=== PATIENT | female | born 1965 | race Caucasian/White ===

== ENCOUNTER → 2016-11-01 | Outpatient (CLI) | payer OTHER ==
[~2016-11-01] MED LIST: ATROPINE SULF 1MG/10ML SYRINGE (J0461) As Ordered ONE; BOTULINUM INJ 100 UNITS (J0585) XX ONE; CETI10CH PO; CYCL10TA3 PO; CYMB60CA3 PO; DEPA250T32 PO; DILA2TAB PO; GABA300C2 PO; GABAPOW41 PO; IMIT100T PO; LANS30CA PO; LEVO75TA3 PO; LEVO88TA3 PO; LIDO5OI EXT; LYRI100C10 PO; LYRI150C PO; LYRI75CA PO; MULTCAP PO; NARA2.5T PO; NORT50CA PO; NUCY50TA PO; PANT20TA PO; PROP1TAB29 PO; RELP20TA PO; SIMV10TA2 PO; TRAZ50TA4 PO; VITA200015 PO; VITA500T3 PO; VITAD1000T PO; [UNRECOGNIZED DRUG - CODE] OU; [UNRECOGNIZED DRUG - CODE] PO; [UNRECOGNIZED DRUG - OTHER] OU
--- NOTE | 2016-11-08 00:59 | ECWPNPC ---
PATIENT NAME: TACOS GONSALEZ : 1965 GENDER: FEMALE VISIT DATE: 11/01/2016 DISCHARGE DATE: 11/01/16 1314 VISIT LOCKED DATE TIME: PHYSICIAN: KENDELL GARCIA RESOURCE: KENDELL GARCIA REASON FOR APPOINTMENT 1. BOTOX HISTORY OF PRESENT ILLNESS HISTORY OF PRESENT ILLNESS: PAIN THE PATIENT DESCRIBES THE PAIN... FALL RISK SCREENING: SCREENING :NO FALLS IN THE PAST YEAR CURRENT MEDICATIONS TAKING CETIRIZINE HCL 10 MG TABLET 1 TABLET NEEDED ORALLY ONCE A DAY, NOTES: 11-01-16599 TAKING CHOLECALCIFEROL 91295 UNIT TABLET ORALLY WEEKLY, NOTES: 10-30-16 TAKING CYANOCOBALAMIN 500 MCG TABLET 1 TABLET ORALLY ONCE A DAY, NOTES: 10-31-162129 TAKING CYCLOBENZAPRINE HCL 10 MG TABLET 1 TABLET ORALLY AT BEDTIME AND NEEDED, NOTES: 11-01-16599 TAKING SYNTHROID 88 MCG TABLET 1 TABLET ORALLY ONCE A DAY, NOTES: 10-31-162129 TAKING LIDOCAINE HCL 5 % OINTMENT EXTERNALLY PRN, NOTES: 3-4 DAYS AGO TAKING MULTIVITAMIN 1 TAB ORALLY DAILY, NOTES: 11-01-16599 TAKING NARATRIPTAN HCL 2.5 MG TABLET FOR MIGRANE ORALLY PRN, NOTES: 10-31-162099 TAKING PANTOPRAZOLE SODIUM 30 MG ORALLY ONCE A DAY, NOTES: 11-01-16599 TAKING VISINE 0.05 % SOLUTION 1 DROP INTO AFFECTED EYE NEEDED OPHTHALMIC DIRECTED, NOTES: 10-31-162099 TAKING DULOXETINE HCL 60 MG CAPSULE DELAYED RELEASE PARTICLES 1 CAPSULE ORALLY BID, NOTES: 11-01-16599 TAKING NORTRIPTYLINE HCL 50 MG CAPSULE 1 CAPSULE AT BEDTIME ORALLY ONCE A DAY AT BEDTIME, NOTES: 10-31-162099 TAKING NUCYNTA 50 MG TABLET 1 TABLET ORALLY 1 Q4-6H MDD4, NOTES: 11-01-16599 DISCONTINUED PREDNISONE 10 MG TABLET 1 TABLET ORALLY ONCE A DAY DISCONTINUED METHOTREXATE (ANTI-RHEUMATIC) 2.5 MG TABLET ORALLY DISCONTINUED NORTRIPTYLINE HCL 50 MG CAPSULE 1 CAPSULE AT BEDTIME ORALLY ONCE A DAY MEDICATION LIST REVIEWED AND RECONCILED WITH THE PATIENT ALLERGIES NIACIN: SWELLING, REDNESS TEGERDERM PATCHES: BLISTERS SOCIAL HISTORY GENERAL: TOBACCO USE ARE YOU A:NONSMOKER LEARNING BARRIERS / SPECIAL NEEDS ORIENTED TO PLAN OF CARE: PATIENT, PAIN MANAGEMENT PATIENT, ORIENTED TO PLAN OF CARE: PATIENT, PAIN MANAGEMENT PATIENT. NEW PATIENT PAIN DIARY TODAY'S VISITNOTES FROM 0-10, WHAT LEVEL IS YOUR PAIN TODAY?0 PAIN CLINIC PFS, CLERGY, PUBLIC HEALTH REFERRALS PFS REFERRAL NEEDED?NO CLERGY REFERRAL NEEDED?NO PUBLIC HEALTH REFERRAL NEEDED?NO WAS THE PROVIDER NOTIFIED OF ANY PERTINENT INFO?NO PFS REFERRAL NEEDED?NO CLERGY REFERRAL NEEDED?NO PUBLIC HEALTH REFERRAL NEEDED?NO WAS THE PROVIDER NOTIFIED OF ANY PERTINENT INFO?NO REVIEW OF SYSTEMS CONSTITUTIONAL: ANY CHANGE IN YOUR MEDICAL CONDITION? NO . CHILLS NO . FEVER NO . INFECTION: DO YOU HAVE NEW INFECTIONS? NO . DO YOU HAVE HISTORY OF MRSA? NO . MUSCULOSKELETAL: ANY NEW PATTERNS OF PAIN OR NUMBNESS? NO . GASTROENTEROLOGY: ANY NEW CHANGE IN BOWEL CONTROL? NO . GENITOURINARY: ANY NEW CHANGE IN BLADDER CONTROL? NO . IS THERE A CHANCE YOU COULD BE ? NO . HEMATOLOGY/LYMPH: DO YOU TAKE ANY BLOOD THINNERS? (FOR EXAMPLE- COUMADIN, PLAVIX, AGGRENOX, PLATEL, PRADAXA, OR XARELTO) NO . WHEN WAS YOUR LAST DOSE? DATE: TIME: . NEUROLOGY: HAVE YOU FALLEN IN THE PAST 6 MONTHS? NO . ANY NEW EXTREMITY NUMBNESS OR WEAKNESS? NO . CARDIOLOGY: DO YOU HAVE A PACEMAKER OR DEFIBRILLATOR? NO . RESPIRATORY: HAVE YOU BEEN SICK IN THE PAST WEEK? NO . FEVER NO . FLU LIKE SYMPTOMS? NO . COUGH NO . INTEGUMENTARY: DO YOU HAVE ANY RASHES OR OPEN SORES? NO . ALLERGIC/IMMUNO: ARE YOU ALLERGIC TO SHELLFISH OR IV DYE? NO . ANY NEW ALLERGIES? NO . PSYCHIATRIC: DO YOU HAVE THOUGHTS OF HURTING YOURSELF OR SOMEONE ELSE? NO . ARE YOU ABUSED, NEGLECTED, OR IN AN UNSAFE ENVIRONMENT? NO . ENDOCRINOLOGY: ARE YOU DIABETIC? NO . OTHER: DO YOU NEED ANY PRESCRIPTIONS? NO . IF YES, PLEASE LIST: ____ . ANY NEW PROBLEMS WITH YOUR MEDICATIONS? NO . WHEN DID YOU LAST EAT? 10-31-16 1800 . WHEN DID YOU LAST DRINK? 11-01-16 0600 . WHAT DID YOU LAST DRINK? WATER . NAME OF PERSON DRIVING YOU HOME? AL . DO YOU HAVE ANY OTHER QUESTIONS OR CONCERNS NO . REVIEWED BY: PROVIDER: . VITAL SIGNS WT 200 LBS, HT 66 IN, BMI 32.28 INDEX, BP 140/82 MM HG, HR 98 /MIN, RR 16 /MIN, TEMP 96.2 F, OXYGEN SAT % 95%, NA INITIALS SC 10:27, REVIEWED BY: CM. ASSESSMENTS CHRONIC MIGRAINE WITHOUT AURA, NOT INTRACTABLE, WITHOUT STATUS MIGRAINOSUS - G43.709 (PRIMARY) PROCEDURES PN BOTOX INJECTIONS FIRST INJECTION PRE PROCEDURE DIAGNOSIS CHRONIC MIGRAINE HEADACHES. POST PROCEDURE DIAGNOSIS CHRONIC MIGRAINE HEADACHES. PROCEDURE BOTOX INJECTION AT THE HEAD, NECK AND SHOULDERS SURGEON DR. KENDELL GARCIA SELF SEALING FUEL TANK REPAIRER NONE ANESTHESIA NONE PRE PROCEDURE NOTE THE PATIENT WITH HISTORY OF CHRONIC MIGRAINE HEADACHES. I EVALUATE THE PATIENT AND REVIEWED THE CHART. I WENT OVER THE RISKS, ALTERNATIVES, AND BENEFITS ASSOCIATED WITH THIS PROCEDURE. THE PATIENT WOULD LIKE TO PROCEED AND GIVE CONSENT TO PERFORMED THE PROCEDURE. THE PATIENT DENIES UNEXPLAINABLE WEIGHT LOSS, FEVER, CHILLS, OR NEW CHANGES IN URINARY OR BOWEL CONTROL. PATIENT HAS RECEIVED BOTOX INJECTIONS IN THE PASS WITH GOOD RESULTS. PATIENT SAW A 50 PERCENT REDUCTION OR MORE IN THE NUMBER OF HEADACHES SHE EXPERIENCED WITH THE BOTOX INJECTION. LAST BOTOX INJECTION WAS APPROXIMATELY 7 MONTHS AGO, DUE TO SOME INSURANCE ISSUES. WITH THE 7 MONTH GAP BETWEEN BOTOX INJECTIONS, THE PATIENT EXPRESSED SUFFERING OF HEADACHES MORE THAN 16 DAYS IN A MONTH WITH A TOTAL OF 30 HEADACHES A MONTH. THESE HEADACHES LAST MORE THAN 4 HOURS PER DAY. THE PATIENT HAS USED THE MEDICATIONS LISTED IN THE CHART TO TREAT THE HEADACHES FOR MANY MONTHS AND THE HEADACHES PERSIST DESCRIBED ABOVE DESCRIPTION OF PROCEDURE THE PATIENTS WAS BROUGHT TO THE PROCEDURE ROOM AND PLACED IN THE SUPINE POSITION. I CHECKED LATERALITY AND THE AREAS WHERE THE PROCEDURE WAS GOING TO BE PERFORMED WITH THE PATIENT AND THE SUPPORTING STAFF AT THE MOMENT OF THE TIME OUT IN THE PROCEDURE ROOM. FOR THE PROCEDURE I USED A SOLUTION OF 5 UNITS OF BOTOX PER EACH 0.1 ML OF THE SOLUTION. I USED A 30-GAUGE NEEDLE TO INJECT THE SOLUTION AT THE SELECTED LOCATIONS. I INJECTED FIRST THE RIGHT AND LEFT PROJECT ADMINISTRATIVE ASSISTANT MUSCLES. THE LANDMARK FOR BOTH INJECTIONS WAS APPROXIMATELY 1 CM ABOVE THE SUPERIOR MEDIAL EDGE OF THE EYEBROW. AFTER THESE TWO INJECTIONS, I INJECTED THE PROCERUS MUSCLE AT THE MIDLINE POINT BETWEEN THESE FIRST TWO INJECTIONS. THEN I PROCEEDED TO INJECT THE RIGHT AND LEFT FRONTALIS MUSCLE. TWO INJECTIONS WERE DONE IN EACH SIDE. THE FIRST INJECTION WAS DONE APPROXIMATELY 2 CM ABOVE THE FIRST INJECTION OF THE PROJECT ADMINISTRATIVE ASSISTANT. THE SECOND INJECTION WAS DONE APPROXIMATELY 1.5 CM LATERAL TO THIS FIST INJECTION OF THE FRONTALIS OF EACH SIDE. AFTER THE INJECTIONS OVER THE FOREHEAD WERE DONE, THE PATIENT'S HEAD WAS TURNED TO THE LEFT SIDE AND WE STARTED TO WORK WITH THE RIGHT TEMPORALIS MUSCLE. FIRST INJECTION WAS DONE IN A VERTICAL LINE OF THE TRAGUS APPROXIMATELY 3 CM ABOVE THE TRAGUS. THE SECOND INJECTION WAS DONE APPROXIMATELY 2 CM ABOVE THE FIRST INJECTION. THE THIRD INJECTION WAS DONE APPROXIMATELY 1 CM FRONT WOOD FROM THIS VERTICAL LINE CREATED AT THE LEVEL OF THE TRAGUS, MCFP BETWEEN THESE TWO INJECTIONS. THE FOURTH INJECTION WAS DONE APPROXIMATELY 1.5 CM BACK FROM THE SECOND INJECTION TO THE TEMPORALIS IN LINE TO THE MIDPORTION OF THE EAR. THEN, WE PROCEEDED TO INJECT THE LEFT TEMPORALIS MUSCLE. WE CLEANED THE AREA WITH ALCOHOL AND PROCEEDED TO PERFORM THE SAME FOR INJECTIONS DESCRIBED ABOVE BUT IN THE LEFT TEMPORALIS MUSCLE USING THE SAME LANDMARKS. AFTER THESE INJECTIONS WERE DONE, THE PATIENT WAS SEATED. FIRST, WE STARTED TO INJECT THE LEFT AND RIGHT OCCIPITALIS MUSCLE. I INJECTED AT THE FOLLOWING PLACES IN THE RIGHT AND LEFT MUSCLE. THE FIRST INJECTION WAS DONE AT THE MIDPOINT POSITION BETWEEN THE MASTOID PROCESS AND THE INION OF THE OCCIPITAL PROTUBERANCE. THE SECOND INJECTION WAS DONE APPROXIMATELY 1.5 CM SUPERIOR AND LATERAL OF THIS POINT. THE THIRD INJECTION WAS DONE APPROXIMATELY 1.5 CM SUPERIOR AND MEDIAL TO THIS FIRST INJECTION. THEN, I PROCEEDED TO INJECT THE RIGHT AND LEFT PARASPINAL MUSCLES. LANDMARK OF THE INJECTION WERE APPROXIMATELY: FIRST INJECTION 3 CM BELOW THE INION AND 1 CM LATERAL TO THE MIDLINE AND SECOND INJECTION AT EACH SIDE WAS DONE APPROXIMATELY 1.5 CM SUPERIOR AND LATERAL OF THE FIRST INJECTION. THE LAST GROUP OF INJECTIONS WAS DONE OVER THE RIGHT AND LEFT TRAPEZIUS MUSCLE OVER THE SHOULDERS AREA. THE FIRST INJECTION WAS DONE AT THE MIDPOINT BETWEEN THE INFLECTION POINT BETWEEN THE NECK AND SHOULDER AND THE ACROMION. THE SECOND AND THIRD INJECTIONS WERE DONE APPROXIMATELY 2.5 CM LATERAL AND MEDIAL FROM THIS FIRST INJECTION. SAME TARGETS WERE USED IN THE RIGHT AND LEFT SIDE. IN TOTAL, I INJECTED 155 UNITS OF BOTOX. PROCEDURE WAS DONE WITHOUT EVIDENCE OF PARESTHESIA, PNEUMOTHORAX, OR ANY COMPLICATIONS. THE PATIENT TOLERATED THE PROCEDURE VERY WELL. THE PATIENT WAS SENT TO THE RECOVERY ROOM FOR OBSERVATIONS. INJECTIONS WERE DONE AFTER CLEANING WITH ALCOHOL, USING ASEPTIC TECHNIQUES POST PROCEDURE NOTE THE PROCEDURE DONE WAS DISCUSSED WITH THE PATIENT. THE PATIENT WILL BE SEEN IN A FOLLOW UP IN THE NEXT FEW WEEKS. INSTRUCTIONS WERE GIVEN, QUESTIONS WERE ANSWERED, AND THE PATIENT EXPRESSED UNDERSTANDING AND AGREES WITH THE PLAN. INSTRUCTIONS WERE GIVEN, QUESTIONS WERE ANSWERED, PATIENT REPORTS UNDERSTANDING AND AGREES WITH THE PLAN. I, OFELIA HALL, DOCUMENTED THE ABOVE INFORMATION ACTING A SCRIBE FOR DR. GARCIA. I HAVE REVIEWED THE ABOVE DOCUMENT, WRITTEN BY OFELIA HALL SCRIBE AND I VERIFY THAT IT IS ACCURATE. PROCEDURE CODES 44425 CHEMODENERV MUSC MIGRAINE [id number] BOTULINUM TOXIN TYPE A PER UNIT FOLLOW UP 3 WEEKS ELECTRONICALLY SIGNED BY KENDELL GARCIA MD ON 11/07/2016 AT 09:30 PM EST DISCLAIMER : THIS IS A VISIT SUMMARY EXTRACTED FROM THE [employer] CHART. IT IS NOT A COPY OF THE [employer] PROGRESS NOTE. ALIN
== END ==
LOC: M PAIN 10:10
PROVIDERS: ATTEND Anesthesiology
DX: G43.709 Chronic migraine without aura, not intractable, without status migrainosus (principal); Z79.899 Other long term (current) drug therapy; Z88.8 Allergy status to other drugs, medicaments and biological substances
CPT/HCPCS: 64615; J0585

== ENCOUNTER → 2016-12-01 | Outpatient (CLI) | payer OTHER ==
[~2016-12-01] MED LIST changes: -ATROPINE SULF 1MG/10ML SYRINGE (J0461) As Ordered ONE; -BOTULINUM INJ 100 UNITS (J0585) XX ONE
--- NOTE | 2016-12-15 01:51 | ECWPNPC ---
PATIENT NAME: TACOS GONSALEZ : 1965 GENDER: FEMALE VISIT DATE: 12/01/2016 DISCHARGE DATE: 12/01/16 0936 VISIT LOCKED DATE TIME: PHYSICIAN: GISEL TEJEDA RESOURCE: GISEL TEJEDA REASON FOR APPOINTMENT 1. POST BOTOX HISTORY OF PRESENT ILLNESS HISTORY OF PRESENT ILLNESS: PAIN THE PATIENT DESCRIBES THE PAIN... FALL RISK SCREENING: SCREENING :NO FALLS IN THE PAST YEAR TODAY'S VISIT: NOTES: IS S/P BOTOX INJECTION COMPLETED ON 11/01/16. STATES THAT AFTER INJECTION HAD ALL OVER BODY ACHE, THROBBING AND NOTED NO IMPROVEMENT IN HEADACHE. THE MALAISE LASTED SEVERAL WEEKS. IN PARTICULAR HAD NO RELIEF WITH THE SENSATION OF EYES TREMBLING AND FEELS LIKE THIS IS OCCURRING OVER THE WHOLE BODY. HAS PERSISTANT HEAD PAIN. HAS HAD 1 MIGRAINE EVENT LASTING 3 DAYS SINCE BOTOX. NO N/V WITH EVENT. NARATRIPTAN X2 WAS HELPFUL BUT ALSO NEEDED THE NUCYNTA AND SLEEP. HAS HAD VISION DIFFICULTY - CAN NOT READ VISION IS BLURRED. NOT ABLE TO SEE MOLECULAR MODELER - APPT CANCELED BY PROVIDER - NEW DATE IN DECEMBER. FEELS GENERALLY WEAK IN ARMS> LEGS. . CURRENT MEDICATIONS TAKING CETIRIZINE HCL 10 MG TABLET 1 TABLET NEEDED ORALLY ONCE A DAY TAKING CHOLECALCIFEROL 23066 UNIT TABLET ORALLY WEEKLY TAKING CYANOCOBALAMIN 500 MCG TABLET 1 TABLET ORALLY ONCE A DAY TAKING CYCLOBENZAPRINE HCL 10 MG TABLET 1 TABLET ORALLY AT BEDTIME AND NEEDED TAKING SYNTHROID 88 MCG TABLET 1 TABLET ORALLY ONCE A DAY TAKING LIDOCAINE HCL 5 % OINTMENT EXTERNALLY PRN TAKING MULTIVITAMIN 1 TAB ORALLY DAILY TAKING NARATRIPTAN HCL 2.5 MG TABLET FOR MIGRANE ORALLY PRN TAKING PANTOPRAZOLE SODIUM 30 MG ORALLY ONCE A DAY TAKING VISINE 0.05 % SOLUTION 1 DROP INTO AFFECTED EYE NEEDED OPHTHALMIC DIRECTED TAKING DULOXETINE HCL 60 MG CAPSULE DELAYED RELEASE PARTICLES 1 CAPSULE ORALLY BID TAKING NORTRIPTYLINE HCL 50 MG CAPSULE 1 CAPSULE AT BEDTIME ORALLY ONCE A DAY AT BEDTIME TAKING NUCYNTA 50 MG TABLET 1 TABLET ORALLY 1 Q4-6H MDD4 MEDICATION LIST REVIEWED AND RECONCILED WITH THE PATIENT ALLERGIES NIACIN: SWELLING, REDNESS TEGERDERM PATCHES: BLISTERS METHOTREXATE: ELEVATED LIVER ENZYMES: SIDE EFFECTS SOCIAL HISTORY GENERAL: TOBACCO USE ARE YOU A:NONSMOKER LEARNING BARRIERS / SPECIAL NEEDS ORIENTED TO PLAN OF CARE: PATIENT, PAIN MANAGEMENT PATIENT, ORIENTED TO PLAN OF CARE: PATIENT, PAIN MANAGEMENT PATIENT. NEW PATIENT PAIN DIARY TODAY'S VISITNOTES FROM 0-10, WHAT LEVEL IS YOUR PAIN TODAY?0 PAIN CLINIC PFS, CLERGY, PUBLIC HEALTH REFERRALS PFS REFERRAL NEEDED?NO CLERGY REFERRAL NEEDED?NO PUBLIC HEALTH REFERRAL NEEDED?NO WAS THE PROVIDER NOTIFIED OF ANY PERTINENT INFO?NO PFS REFERRAL NEEDED?NO CLERGY REFERRAL NEEDED?NO PUBLIC HEALTH REFERRAL NEEDED?NO WAS THE PROVIDER NOTIFIED OF ANY PERTINENT INFO?NO REVIEW OF SYSTEMS CONSTITUTIONAL: ANY CHANGE IN YOUR MEDICAL CONDITION? NO . CHILLS NO . FEVER NO . INFECTION: DO YOU HAVE NEW INFECTIONS? NO . DO YOU HAVE HISTORY OF MRSA? NO . MUSCULOSKELETAL: ANY NEW PATTERNS OF PAIN OR NUMBNESS? NO . GASTROENTEROLOGY: ANY NEW CHANGE IN BOWEL CONTROL? NO . GENITOURINARY: ANY NEW CHANGE IN BLADDER CONTROL? NO . IS THERE A CHANCE YOU COULD BE ? NO . HEMATOLOGY/LYMPH: DO YOU TAKE ANY BLOOD THINNERS? (FOR EXAMPLE- COUMADIN, PLAVIX, AGGRENOX, PLATEL, PRADAXA, OR XARELTO) NO . WHEN WAS YOUR LAST DOSE? DATE: TIME: . NEUROLOGY: HAVE YOU FALLEN IN THE PAST 6 MONTHS? YES . ANY NEW EXTREMITY NUMBNESS OR WEAKNESS? NO . CARDIOLOGY: DO YOU HAVE A PACEMAKER OR DEFIBRILLATOR? NO . RESPIRATORY: HAVE YOU BEEN SICK IN THE PAST WEEK? NO . FEVER NO . FLU LIKE SYMPTOMS? NO . COUGH NO . INTEGUMENTARY: DO YOU HAVE ANY RASHES OR OPEN SORES? NO . ALLERGIC/IMMUNO: ARE YOU ALLERGIC TO SHELLFISH OR IV DYE? NO . ANY NEW ALLERGIES? NO . PSYCHIATRIC: DO YOU HAVE THOUGHTS OF HURTING YOURSELF OR SOMEONE ELSE? NO . ARE YOU ABUSED, NEGLECTED, OR IN AN UNSAFE ENVIRONMENT? NO . ENDOCRINOLOGY: ARE YOU DIABETIC? NO . OTHER: DO YOU NEED ANY PRESCRIPTIONS? NO . IF YES, PLEASE LIST: ____ . ANY NEW PROBLEMS WITH YOUR MEDICATIONS? NO . WHEN DID YOU LAST EAT? ____ . WHEN DID YOU LAST DRINK? ____ . WHAT DID YOU LAST DRINK? ____ . NAME OF PERSON DRIVING YOU HOME? ____ . DO YOU HAVE ANY OTHER QUESTIONS OR CONCERNS NO . REVIEWED BY: PROVIDER: IGSEL HACKETT . VITAL SIGNS WT 208.0 LBS, HT 66 IN, BMI 33.57 INDEX, BP 148/90 MM HG, HR 101 /MIN, RR 16 /MIN, TEMP 97.6 F, OXYGEN SAT % 95, NA INITIALS TL 0855, REVIEWED BY: KG. EXAMINATION GENERAL EXAMINATION: PSYCHALERT , ORIENTED X 3 , APPROPRIATE MOOD AND AFFECT . HEENT:TENDER OVER TMJ BUT NO CLICK.. LUNGS:CLEAR TO AUSCULTATION BILATERALLY. HEART:HEART RATE REGULAR. MUSCULOSKELETAL:TRIGGER POINTS:, ELICITED WITH PALPATION OVER CERVICAL SPINOUS PROCESSES AND ACROSS THE TRAPEZIUS MUSCLES BILATERALLY. RESTRICTION OF ROM IS NOTED. POINT TENDERNESS BILATERALLY OVER OCCIPITAL NOTCH. NEUROLOGIC EXAM:EOM'S INTACT WITH FEW BEATS NYSTAGMUS AT LATERAL GAZE BILATERALLY. FINGER AND FINGER COORDINATION SLOW AND BUT NONDYMETRIC. RRAMS SLOW. FAIR SHOULDER SHRUG. . ASSESSMENTS MYALGIA - M79.1 (PRIMARY) CHRONIC MIGRAINE WITHOUT AURA WITHOUT STATUS MIGRAINOSUS, NOT INTRACTABLE - G43.709 CHRONIC PRESCRIPTION OPIATE USE - Z79.899 TREATMENT MYALGIA NOTES: CONTINUE CURRENT MEDS. FOLLOW UP WITH PRIMARY CARE PROVIDER. ASK ABOUT PREDNISONE BASED EYE DROPS FOR EYE INFLAMMATION. CALL WHEN SCRIPTS DUE. PROCEDURE CODES FA211 ESTABILISHED PATIENT [facility] CHARGE DISPOSITION & COMMUNICATION FOLLOW UP 6 WEEKS ELECTRONICALLY SIGNED BY TEODORA EWING ON 12/14/2016 AT 02:40 PM EST DISCLAIMER : THIS IS A VISIT SUMMARY EXTRACTED FROM THE [employer] CHART. IT IS NOT A COPY OF THE [employer] PROGRESS NOTE. ALIN
== END ==
LOC: M PAIN 08:40
PROVIDERS: ATTEND Nurse Practitioner Family
DX: Z09 Encounter for follow-up examination after completed treatment for conditions other than malignant neoplasm (principal); G43.709 Chronic migraine without aura, not intractable, without status migrainosus; M79.1 Myalgia; Z88.8 Allergy status to other drugs, medicaments and biological substances; Z79.891 Long term (current) use of opiate analgesic; Z79.899 Other long term (current) drug therapy

== ENCOUNTER → 2017-01-12 | Outpatient (CLI) | payer OTHER ==
--- NOTE | 2017-01-13 01:55 | ECWPNPC ---
PATIENT NAME: TACOS GONSALEZ : 1965 GENDER: FEMALE VISIT DATE: 01/12/2017 DISCHARGE DATE: 01/12/17 0938 VISIT LOCKED DATE TIME: PHYSICIAN: GISEL TEJEDA RESOURCE: GISEL ETJEDA REASON FOR APPOINTMENT 1. HEAD HISTORY OF PRESENT ILLNESS HISTORY OF PRESENT ILLNESS: PAIN THE PATIENT DESCRIBES THE PAIN... FALL RISK SCREENING: SCREENING :NO FALLS IN THE PAST YEAR TODAY'S VISIT: NOTES: RATES PAIN TODAY 04/01. DID SEE RHEUMATOLOGY WHO STARTED ON PREDNISONE 2 WEEKS AGO. HAD EPISODE OF DRENCHING SWEATS. WAS TO START ON EMBREL BUT DIDN'T BECAUSE OF &QUOT;PASSED OUT&QUOT; TIRED. COULD FEEL A BANGING IN RIGHT EARV-VTHIS STOPPED AFTER THE CHEST PAIN EPISODE. HEADACHES ARE RE-EMERGING. MIGRAINES HAVE BEEN 1 EVERY OTHER WEEK IN LAST MONTH AND TEHY HAVE A DURATION OF 1-2 DAYS. REPORTS BOTAX HAS BEEN HELPFUL IN MIGRAINE CONTROL.. CURRENT MEDICATIONS TAKING CETIRIZINE HCL 10 MG TABLET 1 TABLET NEEDED ORALLY ONCE A DAY TAKING CHOLECALCIFEROL 45169 UNIT TABLET ORALLY WEEKLY TAKING CYANOCOBALAMIN 500 MCG TABLET 1 TABLET ORALLY ONCE A DAY TAKING CYCLOBENZAPRINE HCL 10 MG TABLET 1 TABLET ORALLY THREE TIMES A DAY NEEDED TAKING SYNTHROID 88 MCG TABLET 1 TABLET ORALLY ONCE A DAY TAKING LIDOCAINE HCL 5 % OINTMENT EXTERNALLY PRN TAKING MULTIVITAMIN 1 TAB ORALLY DAILY TAKING NARATRIPTAN HCL 2.5 MG TABLET FOR MIGRANE ORALLY PRN TAKING PANTOPRAZOLE SODIUM 30 MG ORALLY ONCE A DAY TAKING VISINE 0.05 % SOLUTION 1 DROP INTO AFFECTED EYE NEEDED OPHTHALMIC DIRECTED TAKING DULOXETINE HCL 60 MG CAPSULE DELAYED RELEASE PARTICLES 1 CAPSULE ORALLY BID TAKING NORTRIPTYLINE HCL 50 MG CAPSULE 1 CAPSULE AT BEDTIME ORALLY ONCE A DAY AT BEDTIME TAKING NUCYNTA 50 MG TABLET 1 TABLET ORALLY 1 Q4-6H MDD4 MEDICATION LIST REVIEWED AND RECONCILED WITH THE PATIENT ALLERGIES NIACIN: SWELLING, REDNESS TEGERDERM PATCHES: BLISTERS METHOTREXATE: ELEVATED LIVER ENZYMES: SIDE EFFECTS BANDAIDS: RASH: SIDE EFFECTS REVIEW OF SYSTEMS CONSTITUTIONAL: ANY CHANGE IN YOUR MEDICAL CONDITION? NO . CHILLS NO . FEVER NO . INFECTION: DO YOU HAVE NEW INFECTIONS? NO . DO YOU HAVE HISTORY OF MRSA? NO . MUSCULOSKELETAL: ANY NEW PATTERNS OF PAIN OR NUMBNESS? NO . GASTROENTEROLOGY: ANY NEW CHANGE IN BOWEL CONTROL? NO . GENITOURINARY: ANY NEW CHANGE IN BLADDER CONTROL? NO . IS THERE A CHANCE YOU COULD BE ? NO . HEMATOLOGY/LYMPH: DO YOU TAKE ANY BLOOD THINNERS? (FOR EXAMPLE- COUMADIN, PLAVIX, AGGRENOX, PLATEL, PRADAXA, OR XARELTO) NO . WHEN WAS YOUR LAST DOSE? DATE: TIME: . NEUROLOGY: HAVE YOU FALLEN IN THE PAST 6 MONTHS? NO . ANY NEW EXTREMITY NUMBNESS OR WEAKNESS? NO . CARDIOLOGY: DO YOU HAVE A PACEMAKER OR DEFIBRILLATOR? NO . CHEST PAIN ONSET OF CHEST PAIN, JAW PAIN AND SWEATING AFTER AN EPISODE OF CHOKING AND WINDPIPE CLOSING ON 01/06/17. SHE DID CALL HER PCP, Mehnaz GIBBS WHO TOLD HER TO GO TO ER. SHE DECLINED BUT DOES HAVE AN APPOINTMENT WITH HER PCP. . RESPIRATORY: HAVE YOU BEEN SICK IN THE PAST WEEK? NO . FEVER NO . FLU LIKE SYMPTOMS? NO . COUGH NO . INTEGUMENTARY: DO YOU HAVE ANY RASHES OR OPEN SORES? NO . ALLERGIC/IMMUNO: ARE YOU ALLERGIC TO SHELLFISH OR IV DYE? NO . ANY NEW ALLERGIES? YES, BANDAIDS . PSYCHIATRIC: DO YOU HAVE THOUGHTS OF HURTING YOURSELF OR SOMEONE ELSE? NO . ARE YOU ABUSED, NEGLECTED, OR IN AN UNSAFE ENVIRONMENT? NO . ENDOCRINOLOGY: ARE YOU DIABETIC? NO . OTHER: DO YOU NEED ANY PRESCRIPTIONS? NO . IF YES, PLEASE LIST: ____ . ANY NEW PROBLEMS WITH YOUR MEDICATIONS? NO . WHEN DID YOU LAST EAT? ____ . WHEN DID YOU LAST DRINK? ____ . WHAT DID YOU LAST DRINK? ____ . NAME OF PERSON DRIVING YOU HOME? ____ . DO YOU HAVE ANY OTHER QUESTIONS OR CONCERNS YES, ? HEART ATTACK . HEENT: CHANGE IN VISION HAS CONTINUED TO HAVE ISSUES - WILL SEE EYE DOC IN JANUARY. . REVIEWED BY: PROVIDER: GISEL HACKETT . VITAL SIGNS WT 200 LBS, HT 66 IN, BMI 32.28 INDEX, BP 140/81 MM HG, HR 66 /MIN, RR 16 /MIN, TEMP 100 F, OXYGEN SAT % 95%, NA INITIALS SC 08:57, REVIEWED BY: CS. EXAMINATION GENERAL EXAMINATION: GENERAL APPEARANCE:COLOR PALE. PSYCHALERT , ORIENTED X 3 , APPROPRIATE MOOD AND AFFECT . LUNGS:CLEAR TO AUSCULTATION BILATERALLY. HEART:HEART RATE REGULAR, NORMAL S1S2, NO MURMURS, CLICK OR RUBS. MUSCULOSKELETAL:MUSCLE STRENGTH TESTING 5/5 BILATERAL UPPER AND LOWER EXTREMITIES., TRIGGER POINTS AND TIGHT FIBROUS BANDS IDENTIFIED ACROSS THE TRAPEZIUS MUSCLES. RESTRICTION OF NECK ROTATION, EXTENSION AND FLEXION NOTED. . NEUROLOGIC EXAM:GAZE DISCONUGATE. NO PTOSIS. SPEACH DELIBERATE, NO SLURRING, NO DIFFICULTY WITH WORD FINDING, NONDYSARTHRIC. , TREMOR PRESENT WITH INTENTION BILATERAL UPPER EXTREMITIES. EOMS INTACT - NO NYSTAGMUS. ASSESSMENTS MYALGIA - M79.1 (PRIMARY) CHRONIC MIGRAINE WITHOUT AURA WITHOUT STATUS MIGRAINOSUS, NOT INTRACTABLE - G43.709 CHRONIC PRESCRIPTION OPIATE USE - Z79.899 TREATMENT CHRONIC MIGRAINE WITHOUT AURA WITHOUT STATUS MIGRAINOSUS, NOT INTRACTABLE CHEMODENERVATION (BOTOX) MISC-MIGRAINE HEADACHES NOTES: CONTINUE CURRENT MEDS. TO ER IF CHEST PAIN OR PRESSURE DEVELOPS. PREVENTIVE MEDICINE PAIN CLINIC TEACHING: PROCEDURE TEACHING PATEINT DECLINED PRINTED INFORMATION ON BOTOX STATING SHE HAS HAD THEM IN THE PAST AND IS FAMILIAR WITH THE PROCEDURE.. PROCEDURE CODES FA211 ESTABILISHED PATIENT [facility] CHARGE DISPOSITION & COMMUNICATION FOLLOW UP AFTER BOTOX (REASON: CHECK AUTH FOR BOTOX - DUE 01/30/17) ELECTRONICALLY SIGNED BY TEODORA EWING ON 01/12/2017 AT 01:17 PM EDT DISCLAIMER : THIS IS A VISIT SUMMARY EXTRACTED FROM THE [employer] CHART. IT IS NOT A COPY OF THE [employer] PROGRESS NOTE. ALIN
== END ==
LOC: M PAIN 08:40
PROVIDERS: ATTEND Nurse Practitioner Family
DX: Z09 Encounter for follow-up examination after completed treatment for conditions other than malignant neoplasm (principal); G43.709 Chronic migraine without aura, not intractable, without status migrainosus; M79.1 Myalgia; Z88.8 Allergy status to other drugs, medicaments and biological substances; L23.1 Allergic contact dermatitis due to adhesives; Z79.899 Other long term (current) drug therapy

== ENCOUNTER → 2017-03-03 | Outpatient (CLI) | payer OTHER ==
[~2017-03-03] MED LIST changes: +BOTULINUM INJ 100 UNITS (J0585) IM ONE
--- NOTE | 2017-03-11 23:29 | ECWPNPC ---
PATIENT NAME: TACOS GONSALEZ : 1965 GENDER: FEMALE VISIT DATE: 03/03/2017 DISCHARGE DATE: 03/03/17 1049 VISIT LOCKED DATE TIME: PHYSICIAN: KENDELL GARCIA RESOURCE: KENDELL GARCIA REASON FOR APPOINTMENT 1. BOTOX INJECTIONS HISTORY OF PRESENT ILLNESS HISTORY OF PRESENT ILLNESS: PAIN THE PATIENT DESCRIBES THE PAIN... FALL RISK SCREENING: SCREENING :NO FALLS IN THE PAST YEAR CURRENT MEDICATIONS TAKING CETIRIZINE HCL 10 MG TABLET 1 TABLET NEEDED ORALLY ONCE A DAY, NOTES: 03-03-17499 TAKING CHOLECALCIFEROL 97077 UNIT TABLET ORALLY WEEKLY, NOTES: WEEK AGO TAKING CYANOCOBALAMIN 500 MCG TABLET 1 TABLET ORALLY ONCE A DAY, NOTES: 03-02-172199 TAKING CYCLOBENZAPRINE HCL 10 MG TABLET 1 TABLET ORALLY THREE TIMES A DAY NEEDED, NOTES: 03-03-17499 TAKING SYNTHROID 88 MCG TABLET 1 TABLET ORALLY ONCE A DAY, NOTES: 03-02-172199 TAKING LIDOCAINE HCL 5 % OINTMENT EXTERNALLY PRN, NOTES: NONE RECENT TAKING MULTIVITAMIN 1 TAB ORALLY DAILY, NOTES: 03-03-17499 TAKING NARATRIPTAN HCL 2.5 MG TABLET FOR MIGRANE ORALLY PRN, NOTES: 03-02-171799 TAKING PANTOPRAZOLE SODIUM 30 MG ORALLY ONCE A DAY, NOTES: 03-03-17499 TAKING VISINE 0.05 % SOLUTION 1 DROP INTO AFFECTED EYE NEEDED OPHTHALMIC DIRECTED, NOTES: 03-03-17499 TAKING DULOXETINE HCL 60 MG CAPSULE DELAYED RELEASE PARTICLES 1 CAPSULE ORALLY BID, NOTES: 03-03-17499 TAKING NORTRIPTYLINE HCL 50 MG CAPSULE 1 CAPSULE AT BEDTIME ORALLY ONCE A DAY AT BEDTIME, NOTES: 03-02-172199 TAKING NUCYNTA 50 MG TABLET 1 TABLET ORALLY 1 Q4-6H MDD4, NOTES: 03-03-17499 TAKING ENBREL 25 MG/0.5ML SOLUTION PREFILLED SYRINGE 1 ML SUBCUTANEOUS WEEKLY, NOTES: 03-02-171599 MEDICATION LIST REVIEWED AND RECONCILED WITH THE PATIENT ALLERGIES NIACIN: SWELLING, REDNESS TEGERDERM PATCHES: BLISTERS METHOTREXATE: ELEVATED LIVER ENZYMES: SIDE EFFECTS BANDAIDS: RASH: SIDE EFFECTS REVIEW OF SYSTEMS CONSTITUTIONAL: ANY CHANGE IN YOUR MEDICAL CONDITION? NO . CHILLS NO . FEVER NO . INFECTION: DO YOU HAVE NEW INFECTIONS? NO . DO YOU HAVE HISTORY OF MRSA? NO . MUSCULOSKELETAL: ANY NEW PATTERNS OF PAIN OR NUMBNESS? NO . GASTROENTEROLOGY: ANY NEW CHANGE IN BOWEL CONTROL? NO . GENITOURINARY: ANY NEW CHANGE IN BLADDER CONTROL? NO . IS THERE A CHANCE YOU COULD BE ? NO . HEMATOLOGY/LYMPH: DO YOU TAKE ANY BLOOD THINNERS? (FOR EXAMPLE- COUMADIN, PLAVIX, AGGRENOX, PLATEL, PRADAXA, OR XARELTO) NO . WHEN WAS YOUR LAST DOSE? DATE: TIME: . NEUROLOGY: HAVE YOU FALLEN IN THE PAST 6 MONTHS? NO . ANY NEW EXTREMITY NUMBNESS OR WEAKNESS? NO . CARDIOLOGY: DO YOU HAVE A PACEMAKER OR DEFIBRILLATOR? NO . RESPIRATORY: HAVE YOU BEEN SICK IN THE PAST WEEK? NO . FEVER NO . FLU LIKE SYMPTOMS? NO . COUGH NO . INTEGUMENTARY: DO YOU HAVE ANY RASHES OR OPEN SORES? NO . ALLERGIC/IMMUNO: ARE YOU ALLERGIC TO SHELLFISH OR IV DYE? NO . ANY NEW ALLERGIES? NO . PSYCHIATRIC: DO YOU HAVE THOUGHTS OF HURTING YOURSELF OR SOMEONE ELSE? NO . ARE YOU ABUSED, NEGLECTED, OR IN AN UNSAFE ENVIRONMENT? NO . ENDOCRINOLOGY: ARE YOU DIABETIC? NO . OTHER: DO YOU NEED ANY PRESCRIPTIONS? YES . IF YES, PLEASE LIST: NUCYNTA . ANY NEW PROBLEMS WITH YOUR MEDICATIONS? NO . WHEN DID YOU LAST EAT? 03-02-17 11PM . WHEN DID YOU LAST DRINK? 03-03-17 0500 . WHAT DID YOU LAST DRINK? TEA . NAME OF PERSON DRIVING YOU HOME? AL . DO YOU HAVE ANY OTHER QUESTIONS OR CONCERNS NO . REVIEWED BY: PROVIDER: . VITAL SIGNS WT 200 LBS, HT 66 IN, BMI 32.28 INDEX, BP 128/90 MM HG, HR 91 /MIN, RR 16 /MIN, TEMP 98.1 F, OXYGEN SAT % 100%, NA INITIALS SC 09:08, REVIEWED BY: CM. ASSESSMENTS CHRONIC MIGRAINE WITHOUT AURA, NOT INTRACTABLE, WITHOUT STATUS MIGRAINOSUS - G43.709 (PRIMARY) PROCEDURES PN BOTOX INJECTIONS SUBSEQUENT INJECTIONS PRE PROCEDURE DIAGNOSIS CHRONIC MIGRAINE HEADACHES POST PROCEDURE DIAGNOSIS CHRONIC MIGRAINE HEADACHES PROCEDURE BOTOX INJECTION AT THE HEAD, NECK AND SHOULDERS SURGEON DR. KENDELL GARCIA RETORT LOAD EXPEDITER NONE ANESTHESIA NONE PRE PROCEDURE NOTE THE PATIENT HAS HISTORY OF CHRONIC MIGRAINE HEADACHES. I EVALUATE THE PATIENT AND REVIEWED THE CHART. I WENT OVER THE RISKS, ALTERNATIVES, AND BENEFITS ASSOCIATED WITH THIS PROCEDURE. THE PATIENT WOULD LIKE TO PROCEED AND GIVE CONSENT TO PERFORMED THE PROCEDURE. THE PATIENT DENIES UNEXPLAINABLE WEIGHT LOSS, FEVER, CHILLS, OR NEW CHANGES IN URINARY OR BOWEL CONTROL. THE PATIENT DID A BOTOX INJECTION AT THE HEAD, NECK AND SHOULDERS 3 MONTHS AGO AND EXPRESSED MORE THAN 50% REDUCTION ON THE FREQUENCY AND INTENSITY OF THE HEADACHES. THE PATIENT EXPRESS THAT THE USE OF BOTOX HAS REDUCE SIGNIFICANTLY THE SEVERITY OF THE HEADACHES AND EXPRESSED THAT WANT TO RECEIVE THIS PROCEDURE AGAIN TODAY DESCRIPTION OF PROCEDURE THE PATIENTS WAS BROUGHT TO THE PROCEDURE ROOM AND PLACED IN THE SUPINE POSITION. I CHECKED LATERALITY AND THE AREAS WHERE THE PROCEDURE WAS GOING TO BE PERFORMED WITH THE PATIENT AND THE SUPPORTING STAFF AT THE MOMENT OF THE TIME OUT IN THE PROCEDURE ROOM. FOR THE PROCEDURE I USED A SOLUTION OF 5 UNITS OF BOTOX PER EACH 0.1 ML OF THE SOLUTION. I USED A 30-GAUGE NEEDLE TO INJECT THE SOLUTION AT THE SELECTED LOCATIONS. I INJECTED FIRST THE RIGHT AND LEFT GAUGER CHIEF MUSCLES. THE LANDMARK FOR BOTH INJECTIONS WAS APPROXIMATELY 1 CM ABOVE THE SUPERIOR MEDIAL EDGE OF THE EYEBROW. AFTER THESE TWO INJECTIONS, I INJECTED THE PROCERUS MUSCLE AT THE MIDLINE POINT BETWEEN THESE FIRST TWO INJECTIONS. THEN I PROCEEDED TO INJECT THE RIGHT AND LEFT FRONTALIS MUSCLE. TWO INJECTIONS WERE DONE IN EACH SIDE. THE FIRST INJECTION WAS DONE APPROXIMATELY 2 CM ABOVE THE FIRST INJECTION OF THE GAUGER CHIEF. THE SECOND INJECTION WAS DONE APPROXIMATELY 1.5 CM LATERAL TO THIS FIST INJECTION OF THE FRONTALIS OF EACH SIDE. AFTER THE INJECTIONS OVER THE FOREHEAD WERE DONE, THE PATIENT'S HEAD WAS TURNED TO THE LEFT SIDE AND WE STARTED TO WORK WITH THE RIGHT TEMPORALIS MUSCLE. FIRST INJECTION WAS DONE IN A VERTICAL LINE OF THE TRAGUS APPROXIMATELY 3 CM ABOVE THE TRAGUS. THE SECOND INJECTION WAS DONE APPROXIMATELY 2 CM ABOVE THE FIRST INJECTION. THE THIRD INJECTION WAS DONE APPROXIMATELY 1 CM FRONT WOOD FROM THIS VERTICAL LINE CREATED AT THE LEVEL OF THE TRAGUS, ALF BETWEEN THESE TWO INJECTIONS. THE FOURTH INJECTION WAS DONE APPROXIMATELY 1.5 CM BACK FROM THE SECOND INJECTION TO THE TEMPORALIS IN LINE TO THE MIDPORTION OF THE EAR. THEN, WE PROCEEDED TO INJECT THE LEFT TEMPORALIS MUSCLE. WE CLEANED THE AREA WITH ALCOHOL AND PROCEEDED TO PERFORM THE SAME FOR INJECTIONS DESCRIBED ABOVE BUT IN THE LEFT TEMPORALIS MUSCLE USING THE SAME LANDMARKS. AFTER THESE INJECTIONS WERE DONE, THE PATIENT WAS SEATED. FIRST, WE STARTED TO INJECT THE LEFT AND RIGHT OCCIPITALIS MUSCLE. I INJECTED AT THE FOLLOWING PLACES IN THE RIGHT AND LEFT MUSCLE. THE FIRST INJECTION WAS DONE AT THE MIDPOINT POSITION BETWEEN THE MASTOID PROCESS AND THE INION OF THE OCCIPITAL PROTUBERANCE. THE SECOND INJECTION WAS DONE APPROXIMATELY 1.5 CM SUPERIOR AND LATERAL OF THIS POINT. THE THIRD INJECTION WAS DONE APPROXIMATELY 1.5 CM SUPERIOR AND MEDIAL TO THIS FIRST INJECTION. THEN, I PROCEEDED TO INJECT THE RIGHT AND LEFT PARASPINAL MUSCLES. LANDMARK OF THE INJECTION WERE APPROXIMATELY: FIRST INJECTION 3 CM BELOW THE INION AND 1 CM LATERAL TO THE MIDLINE AND SECOND INJECTION AT EACH SIDE WAS DONE APPROXIMATELY 1.5 CM SUPERIOR AND LATERAL OF THE FIRST INJECTION. THE LAST GROUP OF INJECTIONS WAS DONE OVER THE RIGHT AND LEFT TRAPEZIUS MUSCLE OVER THE SHOULDERS AREA. THE FIRST INJECTION WAS DONE AT THE MIDPOINT BETWEEN THE INFLECTION POINT BETWEEN THE NECK AND SHOULDER AND THE ACROMION. THE SECOND AND THIRD INJECTIONS WERE DONE APPROXIMATELY 2.5 CM LATERAL AND MEDIAL FROM THIS FIRST INJECTION. SAME TARGETS WERE USED IN THE RIGHT AND LEFT SIDE. IN TOTAL, I INJECTED 155 UNITS OF BOTOX. PROCEDURE WAS DONE WITHOUT EVIDENCE OF PARESTHESIA, PNEUMOTHORAX, OR ANY COMPLICATIONS. THE PATIENT TOLERATED THE PROCEDURE VERY WELL. THE PATIENT WAS SENT TO THE RECOVERY ROOM FOR OBSERVATIONS. INJECTIONS WERE DONE AFTER CLEANING WITH ALCOHOL, USING ASEPTIC TECHNIQUES POST PROCEDURE NOTE THE PROCEDURE DONE WAS DISCUSSED WITH THE PATIENT. THE PATIENT WILL BE SEEN IN A FOLLOW UP IN THE NEXT FEW WEEKS. INSTRUCTIONS WERE GIVEN, QUESTIONS WERE ANSWERED, AND THE PATIENT EXPRESSED UNDERSTANDING AND AGREES WITH THE PLAN. I, BUCK HOWARD, DOCUMENTED THE ABOVE INFORMATION ACTING A SCRIBE FOR DR. GARCIA. I HAVE REVIEWED THE ABOVE DOCUMENT, WRITTEN BY BUCK MUKHERJEE AND I VERIFY THAT IT IS ACCURATE PROCEDURE CODES [address]49 [facility] [facility] & COMMUNICATION FOLLOW UP 3 WEEKS ELECTRONICALLY SIGNED BY KENDELL GARCIA MD ON 03/11/2017 AT 07:07 PM EDT DISCLAIMER : THIS IS A VISIT SUMMARY EXTRACTED FROM THE [employer] CHART. IT IS NOT A COPY OF THE [employer] PROGRESS NOTE. ALIN
== END ==
LOC: M PAIN 08:40
PROVIDERS: ATTEND Anesthesiology
DX: G43.709 Chronic migraine without aura, not intractable, without status migrainosus (principal); M79.1 Myalgia; L23.1 Allergic contact dermatitis due to adhesives; Z88.8 Allergy status to other drugs, medicaments and biological substances; Z79.899 Other long term (current) drug therapy
CPT/HCPCS: 64615; J0585

== ENCOUNTER → 2017-03-27 | Outpatient (CLI) | payer OTHER ==
[~2017-03-27] MED LIST changes: -BOTULINUM INJ 100 UNITS (J0585) IM ONE
[2017-03-27 09:12] LABS: BASO % 0.7 % (0.0-1.0); EOS # 0.4 K/mm3 (0.0-0.50); EOS % 6.8 % (0.0-3.0); LYMPH # 1.9 K/mm3 (1.5-4.5); LYMPH % 27.7 % (24.0-44.0); MEAN CORPUSCULAR HEMOGLOBIN 31.5 pg (27.0-33.0); MEAN CORPUSCULAR HGB CONC 34.6 g/dl (32.0-36.5); MEAN CORPUSCULAR VOLUME 90.9 fl (80.0-96.0); MONO # 0.4 K/mm3 (0.0-0.8); MONO % 5.9 % (0.0-5.0); NEUTROPHILS # 3.8 K/mm3 (1.8-7.7); NEUTROPHILS % 56.5 % (36.0-66.0); WHITE BLOOD COUNT 6.7 K/mm3 (4.0-10.0)
[2017-03-27 09:48] LABS: ALBUMIN 3.9 GM/DL (3.2-5.2); ALBUMIN/GLOBULIN RATIO 1.05 (1.00-1.93); ALKALINE PHOSPHATASE 76 U/L (45-117); ALT/SGPT 42 U/L (12-78); ANION GAP 4 MEQ/L (8-16); AST/SGOT 18 U/L (15-37); BILIRUBIN,TOTAL 0.7 MG/DL (0.2-1.0); BLOOD UREA NITROGEN 17 MG/DL (7-18); CALCIUM LEVEL 9.1 MG/DL (8.5-10.1); CARBON DIOXIDE LEVEL 32 MEQ/L (21-32); CHLORIDE LEVEL 105 MEQ/L (98-107); CREATININE FOR GFR 0.96 MG/DL (0.55-1.02); GLOMERULAR FILTRATION RATE > 60.0 (>51); GLUCOSE, FASTING 100 MG/DL (70-105); POTASSIUM SERUM 4.3 MEQ/L (3.5-5.1); SODIUM LEVEL 141 MEQ/L (136-145); TOTAL PROTEIN 7.6 GM/DL (6.4-8.2)
--- NOTE | 2017-03-27 09:59 | ECGEPIP ---
Stationary ECG Study [facility] Test Date: 2017-03-27 Pat Name: TACOS GONSALEZ Department: Room: - Gender: F Primary [employer] Education Teacher: YONG : 1965 Requested By: Zakiya Munroe Order Number: [id number] Reading MD: Willis Plata Measurements Intervals [place] Rate: 87 P: 42 PA: 232 QRS: 64 QRSD: 97 T: 19 QT: 366 QTc: 443 Interpretive Statements SINUS RHYTHM WITH FIRST DEGREE AV BLOCK POSSIBLE LEFT ATRIAL ENLARGEMENT Septal Q waves of uncertain significance Comparison tracing not on file Electronically Signed On 03-27-2017 9:58:51 EDT by Willis Plata
--- NOTE | 2017-03-27 10:10 | PFTRPT ---
Tech: Garry Huynh [employer]ORER Age: 51 Sex: Female Race: Height: 66.00 Inches Weight: 198.00 Lbs BSA: 1.99 Diagnosis: R07.9 TECH NOTES: Test meets the ATS standards for acceptability and repeatability. The patient was given four puffs of albuterol for postbronchodilator. PULMONARY FUNCTION REPORT ORDERING PROVIDER: TEODORA Morse DATE OF SERVICE: 03/27/17 SPIROMETRY: Pre and post bronchodilator study of excellent technical quality. Some difficulty with effort is suspected. The forced vital capacity is reduced. The FEV1 is in proportion. The obstructive index is, therefore, normal. FLOW VOLUME LOOP: The expiratory limb of the flow volume loop suggests suboptimal effort. Only borderline bronchodilator response is identified. LUNG VOLUMES: The total lung capacity is normal. The residual volume is in proportion. DIFFUSION CAPACITY: The diffusion capacity is normal. HEMOGLOBIN: No hemoglobin is available for correction. AIRWAY MECHANICS: Airways resistance and conductance are normal. IMPRESSION: Borderline study in view of the above. Please correlate clinically MTDD
--- NOTE | 2017-03-27 17:27 | ECHO ---
DATE OF PROCEDURE: 03/27/2017 AGE: 51. GENDER: Female. HEIGHT: 63 inches. WEIGHT: 200 pounds. BODY SURFACE AREA: 1.93 m2. OUTPATIENT INDICATION: Chest pain, (unspecified). REFERRING PHYSICIAN: Zakiya uMnroe NP. MEASUREMENTS: 2D Measurement: RV - 3.6 cm LV - 4.6 cm Septum - 1.2 cm Posterior wall - 1.1 cm Aortic root - 2.6 cm LA - 4.2 cm LVEF - 65% DOPPLER MEASUREMENTS: AV- 1.3 m/s LVOT - 1.2 cm/s LVOT diameter - 2.0 cm MV-E 82, A 120, E/A ratio 0.7 Early mitral deceleration time - 162 ms E prime - 6.4, A prime - 12, E/E prime ratio 12.8 PV - 0.9 m/s Pulmonary artery acceleration time 102 ms PASP - 35 mmHg IVC - 1.5 cm COMMENTS: Normal sinus rhythm with first-degree arteriovenous (AV) block. Technically challenging study in light of the patient's body habitus but diagnostically useful information was still obtained. Mildly dilated left atrium but normal left ventricular size. Right heart chamber sizes were also normal. Left ventricle (LV) wall thickness was upper limits of normal. On real-time imaging from the parasternal and projections wall motion was symmetrical and hyperkinetic. Normal-appearing mitral valvular apparatus and leaflet excursion with no posterior systolic buckling. Three equal size aortic cusps of normal thickness and cusp separation. Normal aortic root size. No apparent intracardiac mass. Very small posterior pericardial effusion (physiologic?). Color flow Doppler study taken from the parasternal and apical projection showed very mild mitral, trace tricuspid but no aortic insufficiency. Guided continuous wave Doppler of her LV outflow tract showed a normal peak systolic velocity against obstruction. Pulsed and continuous wave Doppler of her LV inflow tract taken from the apical four-chamber projection showed normal diastolic filling velocities against mitral stenosis. There was more prominently diastolic / atrial dependent filling pattern. Current early mitral deceleration time was normal but tissue Doppler also suggested a degree of LV diastolic dysfunction with current estimated mean left atrial pressure upper limits of normal. Pulsed and continuous wave Doppler of her pulmonary trunk showed a normal peak systolic velocity against right ventricle (RV) outflow tract obstruction. Her pulmonary artery acceleration time was slightly abbreviated suggestive of a slightly elevated pulmonary vascular resistance. Guided continuous wave Doppler of her tricuspid valve was performed to further estimate her right ventricular systolic pressure but a clear spectral envelope could not be obtained. Her inferior vena cava was of normal size with normal respiratory collapse against an elevated central venous pressure. CONCLUSIONS: Unable to clearly identify a cause for the patient's chest pain. Small posterior pericardial effusion not outside normal limits. Could not rule out pericarditis if her chest pain was pleuritic. Borderline left ventricle hypertrophy with hyperkinetic wall motion. Mildly dilated left atrium with Doppler evidence of an impairment of LV diastolic function but current estimated mean left atrial pressure upper limits of normal. Normal right heart chamber sizes and contraction with Doppler sign of at least borderline pulmonary hypertension.
== END ==
LOC: M LAB 08:25
PROVIDERS: ATTEND Nurse Practitioner Family
DX: R07.9 Chest pain, unspecified (principal); Z79.899 Other long term (current) drug therapy

== ENCOUNTER → 2017-04-18 | Outpatient (CLI) | payer OTHER ==
[~2017-04-18] MED LIST changes: -LYRI100C10 PO; +PREG100CA PO; +TRAZ50TA11 PO; -TRAZ50TA4 PO
--- NOTE | 2017-05-04 00:28 | ECWPNPC ---
PATIENT NAME: TACOS GONSALEZ : 1965 GENDER: FEMALE VISIT DATE: 04/18/2017 DISCHARGE DATE: 04/18/17 1025 VISIT LOCKED DATE TIME: PHYSICIAN: GISEL TEJEDA RESOURCE: GISEL TEJEDA HISTORY OF PRESENT ILLNESS HISTORY OF PRESENT ILLNESS: PAIN THE PATIENT DESCRIBES THE PAIN... FALL RISK SCREENING: SCREENING :NO FALLS IN THE PAST YEAR TODAY'S VISIT: NOTES: RATES PAIN TODAY 5/10 DESCRIBES PAIN BURNING AND THROBBING AND SORE. NOTES PAIN IS CENTERED OVER LEFT SIKH, EAR AND PARIETAL REGION AND INT LEFT NECK SHOULDER AND UPPER BACK. IS S/P BOTOX INJECTION TREATMENT FOR CHRONIC MIGRAINE ON 02/1217. REPORTS &QUOT;STIFF NECK&QUOT; LEFT SIDE SINCE BOTOX. HAS HAD 2 MIGRAINE EVENTS SINCE TREATMENT. TAKES NARATRIPTAN AT [facility] AND NOTES RESOLUTION AFTER 3-4 HOURS. DOES STILL HAVE DAILY HEADACHE WHICH HAS NOT CHANGED. HAS NO ER VISIT RECENTLY DUE TO HEAD PAIN. . CURRENT MEDICATIONS TAKING CETIRIZINE HCL 10 MG TABLET 1 TABLET NEEDED ORALLY ONCE A DAY TAKING CHOLECALCIFEROL 96154 UNIT TABLET ORALLY WEEKLY TAKING CYANOCOBALAMIN 500 MCG TABLET 1 TABLET ORALLY ONCE A DAY TAKING CYCLOBENZAPRINE HCL 10 MG TABLET 1 TABLET ORALLY THREE TIMES A DAY NEEDED TAKING SYNTHROID 88 MCG TABLET 1 TABLET ORALLY ONCE A DAY TAKING LIDOCAINE HCL 5 % OINTMENT EXTERNALLY PRN TAKING MULTIVITAMIN 1 TAB ORALLY DAILY TAKING NARATRIPTAN HCL 2.5 MG TABLET FOR MIGRANE ORALLY PRN TAKING PANTOPRAZOLE SODIUM 30 MG ORALLY ONCE A DAY TAKING VISINE 0.05 % SOLUTION 1 DROP INTO AFFECTED EYE NEEDED OPHTHALMIC DIRECTED TAKING DULOXETINE HCL 60 MG CAPSULE DELAYED RELEASE PARTICLES 1 CAPSULE ORALLY BID TAKING NORTRIPTYLINE HCL 50 MG CAPSULE 1 CAPSULE AT BEDTIME ORALLY ONCE A DAY AT BEDTIME TAKING ENBREL 25 MG/0.5ML SOLUTION PREFILLED SYRINGE 1 ML SUBCUTANEOUS WEEKLY TAKING NUCYNTA 50 MG TABLET 1 TABLET ORALLY 1 Q4-6H MDD4 MEDICATION LIST REVIEWED AND RECONCILED WITH THE PATIENT PAST MEDICAL HISTORY AV BLOCK-TYPE? ALLERGIES NIACIN: SWELLING, REDNESS TEGERDERM PATCHES: BLISTERS METHOTREXATE: ELEVATED LIVER ENZYMES: SIDE EFFECTS BANDAIDS: RASH: SIDE EFFECTS SURGICAL HISTORY BARIATRIC OR 2012 TUBAL LIGATE 2012 BREAST BX AND REDUCTION 2007 AND 2014 REVIEW OF SYSTEMS REVIEWED BY: PROVIDER: GISEL HACKETT . CONSTITUTIONAL: ANY CHANGE IN YOUR MEDICAL CONDITION? YES, PT STATES DR. MEDINA FROM [facility] CALLED HER AND TOLD HER THAT SHE HAS AN AV BLOCK. PT DENIES BEING TOLD WHAT TYPE OF AV BLOCK. PT STATES SHE HAS AN APPOINTMENT COMING UP WITH DR. LIU IN [place] 05/01/17 FOR TX OF THIS. . CHILLS NO . FEVER NO . INFECTION: DO YOU HAVE NEW INFECTIONS? NO . DO YOU HAVE HISTORY OF MRSA? NO . MUSCULOSKELETAL: ANY NEW PATTERNS OF PAIN OR NUMBNESS? NO . ARTHRITIS PSORIATIC ARTHRIS - NEWLY STARTED ON ARTHRITIS WHICH HAS TAKEN THE SWELLING FROM THE JOINTS - NOW FEELS LIKE BONE ON BONE. . GASTROENTEROLOGY: ANY NEW CHANGE IN BOWEL CONTROL? NO . GENITOURINARY: ANY NEW CHANGE IN BLADDER CONTROL? NO . IS THERE A CHANCE YOU COULD BE ? NO . HEMATOLOGY/LYMPH: DO YOU TAKE ANY BLOOD THINNERS? (FOR EXAMPLE- COUMADIN, PLAVIX, AGGRENOX, PLATEL, PRADAXA, OR XARELTO) NO . WHEN WAS YOUR LAST DOSE? DATE: TIME: . NEUROLOGY: HAVE YOU FALLEN IN THE PAST 6 MONTHS? NO . ANY NEW EXTREMITY NUMBNESS OR WEAKNESS? NO . CARDIOLOGY: DO YOU HAVE A PACEMAKER OR DEFIBRILLATOR? NO . CHEST PAIN HAD CHEST AND BACK PAIN IN DECEMBER OR JANUARY AND WAS SENT BY DR OWENS FOR ECHO-CARDIOGRAM. TO FOLLOW UP WITH CARDIOLOGY EVAL FOR NEW FINDING OF AV HAS HAD NO FURTHER CHEST PAIN . RESPIRATORY: HAVE YOU BEEN SICK IN THE PAST WEEK? NO . FEVER NO . FLU LIKE SYMPTOMS? NO . COUGH NO . INTEGUMENTARY: DO YOU HAVE ANY RASHES OR OPEN SORES? NO . ALLERGIC/IMMUNO: ARE YOU ALLERGIC TO SHELLFISH OR IV DYE? NO . ANY NEW ALLERGIES? NO . PSYCHIATRIC: DO YOU HAVE THOUGHTS OF HURTING YOURSELF OR SOMEONE ELSE? NO . ARE YOU ABUSED, NEGLECTED, OR IN AN UNSAFE ENVIRONMENT? NO . ENDOCRINOLOGY: ARE YOU DIABETIC? NO . OTHER: DO YOU NEED ANY PRESCRIPTIONS? NO . IF YES, PLEASE LIST: ____ . ANY NEW PROBLEMS WITH YOUR MEDICATIONS? NO . WHEN DID YOU LAST EAT? ____ . WHEN DID YOU LAST DRINK? ____ . WHAT DID YOU LAST DRINK? ____ . NAME OF PERSON DRIVING YOU HOME? ____ . DO YOU HAVE ANY OTHER QUESTIONS OR CONCERNS NO . VITAL SIGNS WT 202 LBS, HT 66 IN, BMI 32.60 INDEX, BP 135/78 MM HG, HR 98 /MIN, RR 16 /MIN, TEMP 98.8 F, OXYGEN SAT % 99%, SAFE IN ENV? (Y/N) Y, NA INITIALS UT 09:39, REVIEWED BY: JETHRO. EXAMINATION GENERAL EXAMINATION: PSYCHALERT , ORIENTED X 3 , AFFECT FLAT, GOOD EYE CONTACT. LUNGS:CLEAR TO AUSCULTATION BILATERALLY. HEART:HEART RATE REGULAR. MUSCULOSKELETAL:TRIGGER POINTS:LEFT SCAPULA AND UPPER THORACIC AND LEFT CERVICAL SPINOUS PROCESSES. MOVIE MACHINE OPERATOR STRENGTH EQUAL AND STRONG. MARKED DECREASE IN NECK ROM WITH FLEX/EXTENSION/ROTATION. POINT TENDERNESS OVER OVER L>R OCCIPITAL NOTCH. NEUROLOGIC EXAM:CN'S II-XII GROSSLY INTACT. EOM'S INTACT WITHOUT NYSTAGMUS. MOVIE MACHINE OPERATOR STRENTH EQUAL AND STRONG. . ASSESSMENTS CHRONIC MIGRAINE WITHOUT AURA, NOT INTRACTABLE, WITHOUT STATUS MIGRAINOSUS - G43.709 (PRIMARY) MYALGIA - M79.1 (PRIMARY) CHRONIC PRESCRIPTION OPIATE USE - Z79.899 TREATMENT CHRONIC MIGRAINE WITHOUT AURA, NOT INTRACTABLE, WITHOUT STATUS MIGRAINOSUS TRIGGER POINT 3 + GISEL GUERRA 04/18/2017 10:11:55 AM > LEFT NECK/SHOULDER UPPER THORACIC LEFT SIDE NOTES: CALL WHEN MEEDS DUE. DO EXERCISES AND STRETCHES. ALT ICE AND HEAT TO NECK/SHOULDER AREA. PT IS ON ENBREL FOR PSORIATIC ARTHRITIS. (TAKEN ON MONDAY - HOLD AND DUE INJECTION ON MONDAY IF OK WITH RHEUMATOLOGY - TAKE INJECTION ON NEXT DUE DATE. PROCEDURE CODES FA211 ESTABILISHED PATIENT [facility] CHARGE DISPOSITION & COMMUNICATION FOLLOW UP AFTER INJECTION (REASON: CHECK AUTH FOR TPI - ON ENBREL) ELECTRONICALLY SIGNED BY TEODORA EWING ON 05/03/2017 AT 02:03 PM EDT DISCLAIMER : THIS IS A VISIT SUMMARY EXTRACTED FROM THE [employer] CHART. IT IS NOT A COPY OF THE [employer] PROGRESS NOTE. ALIN
== END ==
LOC: M PAIN 09:20
PROVIDERS: ATTEND Nurse Practitioner Family
DX: G43.709 Chronic migraine without aura, not intractable, without status migrainosus (principal); M79.1 Myalgia; Z79.891 Long term (current) use of opiate analgesic; Z79.899 Other long term (current) drug therapy; Z88.8 Allergy status to other drugs, medicaments and biological substances; Z91.09 Other allergy status, other than to drugs and biological substances

== ENCOUNTER → 2017-05-04 | Outpatient (CLI) | payer OTHER ==
[~2017-05-04] MED LIST changes: +BUPIVACAINE HCL 0.25% 10 ML VIAL As Ordered ONE; +BUPIVACAINE HCL 0.25% 30 ML VIAL As Ordered ONE; +TRIAMCINOLONE ACETONIDE SUSP 40 MG/ML VIAL (J3301) As Ordered ONE
--- NOTE | 2017-05-16 01:21 | ECWPNPC ---
PATIENT NAME: TACOS GONSALEZ : 1965 GENDER: FEMALE VISIT DATE: 05/04/2017 DISCHARGE DATE: 05/04/17 1049 VISIT LOCKED DATE TIME: PHYSICIAN: KENDELL GARCIA RESOURCE: KENDELL GARCIA REASON FOR APPOINTMENT 1. TPI - ON ENBREL HISTORY OF PRESENT ILLNESS HISTORY OF PRESENT ILLNESS: PAIN THE PATIENT DESCRIBES THE PAIN... FALL RISK SCREENING: SCREENING :NO FALLS IN THE PAST YEAR CURRENT MEDICATIONS TAKING CETIRIZINE HCL 10 MG TABLET 1 TABLET NEEDED ORALLY ONCE A DAY, NOTES: 0600 TODAY TAKING CHOLECALCIFEROL 65799 UNIT TABLET ORALLY WEEKLY, NOTES: LAST MONDAY TAKING CYANOCOBALAMIN 500 MCG TABLET 1 TABLET ORALLY ONCE A DAY, NOTES: LAST NIGHT TAKING CYCLOBENZAPRINE HCL 10 MG TABLET 1 TABLET ORALLY THREE TIMES A DAY NEEDED, NOTES: 0600 TODAY TAKING SYNTHROID 88 MCG TABLET 1 TABLET ORALLY ONCE A DAY, NOTES: 930 PM TAKING LIDOCAINE HCL 5 % OINTMENT EXTERNALLY PRN, NOTES: NONE TAKING MULTIVITAMIN 1 TAB ORALLY DAILY, NOTES: 0600 TODAY TAKING NARATRIPTAN HCL 2.5 MG TABLET FOR MIGRANE ORALLY PRN, NOTES: OVER 2 DAYS TAKING PANTOPRAZOLE SODIUM 30 MG ORALLY ONCE A DAY, NOTES: 0600 TODAY TAKING VISINE 0.05 % SOLUTION 1 DROP INTO AFFECTED EYE NEEDED OPHTHALMIC DIRECTED TAKING DULOXETINE HCL 60 MG CAPSULE DELAYED RELEASE PARTICLES 1 CAPSULE ORALLY BID, NOTES: 0600 TODAY TAKING NORTRIPTYLINE HCL 50 MG CAPSULE 1 CAPSULE AT BEDTIME ORALLY ONCE A DAY AT BEDTIME, NOTES: 930 PM TAKING ENBREL 25 MG/0.5ML SOLUTION PREFILLED SYRINGE 1 ML SUBCUTANEOUS WEEKLY, NOTES: 2 WEEKS AGO TAKING NUCYNTA 50 MG TABLET 1 TABLET ORALLY 1 Q4-6H MDD4, NOTES: 1200 TODAY 05/04/17 MEDICATION LIST REVIEWED AND RECONCILED WITH THE PATIENT PAST MEDICAL HISTORY AV BLOCK-TYPE? ALLERGIES NIACIN: SWELLING, REDNESS TEGERDERM PATCHES: BLISTERS METHOTREXATE: ELEVATED LIVER ENZYMES: SIDE EFFECTS BANDAIDS: RASH: SIDE EFFECTS REVIEW OF SYSTEMS REVIEWED BY: PROVIDER: . CONSTITUTIONAL: ANY CHANGE IN YOUR MEDICAL CONDITION? NO . CHILLS NO . FEVER NO . INFECTION: DO YOU HAVE NEW INFECTIONS? NO . DO YOU HAVE HISTORY OF MRSA? NO . MUSCULOSKELETAL: ANY NEW PATTERNS OF PAIN OR NUMBNESS? NO . GASTROENTEROLOGY: ANY NEW CHANGE IN BOWEL CONTROL? NO . GENITOURINARY: ANY NEW CHANGE IN BLADDER CONTROL? NO . IS THERE A CHANCE YOU COULD BE ? NO . HEMATOLOGY/LYMPH: DO YOU TAKE ANY BLOOD THINNERS? (FOR EXAMPLE- COUMADIN, PLAVIX, AGGRENOX, PLATEL, PRADAXA, OR XARELTO) NO . WHEN WAS YOUR LAST DOSE? DATE: TIME: . NEUROLOGY: HAVE YOU FALLEN IN THE PAST 6 MONTHS? NO . ANY NEW EXTREMITY NUMBNESS OR WEAKNESS? NO . CARDIOLOGY: DO YOU HAVE A PACEMAKER OR DEFIBRILLATOR? NO . RESPIRATORY: HAVE YOU BEEN SICK IN THE PAST WEEK? NO . FEVER NO . FLU LIKE SYMPTOMS? NO . COUGH NO . INTEGUMENTARY: DO YOU HAVE ANY RASHES OR OPEN SORES? YES . ALLERGIC/IMMUNO: ARE YOU ALLERGIC TO SHELLFISH OR IV DYE? NO . ANY NEW ALLERGIES? NO . PSYCHIATRIC: DO YOU HAVE THOUGHTS OF HURTING YOURSELF OR SOMEONE ELSE? NO . ARE YOU ABUSED, NEGLECTED, OR IN AN UNSAFE ENVIRONMENT? NO . ENDOCRINOLOGY: ARE YOU DIABETIC? NO . OTHER: DO YOU NEED ANY PRESCRIPTIONS? YES . IF YES, PLEASE LIST: NUCYNTA . ANY NEW PROBLEMS WITH YOUR MEDICATIONS? NO . WHEN DID YOU LAST EAT? 6AM . WHEN DID YOU LAST DRINK? 6AM . WHAT DID YOU LAST DRINK? COFFEE . NAME OF PERSON DRIVING YOU HOME? R[place] . DO YOU HAVE ANY OTHER QUESTIONS OR CONCERNS NO . VITAL SIGNS WT 200 LBS, HT 66 IN, BMI 32.28 INDEX, BP 132/80 MM HG, HR 100 /MIN, RR 16 /MIN, TEMP 99.1 F, OXYGEN SAT % 99%, NA INITIALS SC 14:53, REVIEWED BY: NL. ASSESSMENTS MYALGIA - M79.1 (PRIMARY) PROCEDURES PN TRIGGER POINT INJECTION WITH STEROIDS PRE PROCEDURE DIAGNOSIS 1. MYALGIA 2. PAIN AT LEFT NECK AREA, LEFT SHOULDER AREA, AND LEFT LOWER BACK AREA POST PROCEDURE DIAGNOSIS 1. MYALGIA 2. PAIN AT LEFT NECK AREA, LEFT SHOULDER AREA, AND LEFT LOWER BACK AREA PROCEDURE TRIGGER POINT INJECTION AT LEFT NECK AREA, LEFT SHOULDER AREA, AND LEFT LOWER BACK AREA SURGEON DR. KENDELL GARCIA TRANSPORTATION AID NONE ANESTHESIA LOCAL PRE PROCEDURE NOTE THE PATIENT HAS A HISTORY OF CHRONIC PAIN AT THE LEFT NECK AREA, LEFT SHOULDER AREA, AND LEFT LOWER BACK AREA. I EVALUATE THE PATIENT AND REVIEWED THE CHART. THERE IS EVIDENCE OF BANDS OF TISSUE WITH RESTRICTION OF MOVEMENT AND PRESENCE OF TRIGGER POINT AT THE AFFECTED AREA. I WENT OVER THE RISKS, ALTERNATIVES, AND BENEFITS ASSOCIATED WITH THIS PROCEDURE. THE PATIENT WOULD LIKE TO PROCEED AND GIVE CONSENT TO PERFORMED THE PROCEDURE. THE PATIENT DENIES UNEXPLAINABLE WEIGHT LOSS, FEVER, CHILLS, OR NEW CHANGES IN URINARY OR BOWEL CONTROL DESCRIPTION OF PROCEDURE THE PATIENT WAS BROUGHT TO THE PROCEDURE ROOM AND PLACED IN THE SITTING POSITION. THE AREA WAS CLEANED WITH ALCOHOL. THE PROCEDURE WAS DONE USING ASEPTIC STERILE TECHNIQUE. I CHECKED LATERALITY AND THE LEVEL WHERE THE PROCEDURE WAS GOING TO BE PERFORMED WITH THE PATIENT AND THE SUPPORTING STAFF AT THE MOMENT OF THE TIME OUT IN THE PROCEDURE ROOM. USING A 25-GAUGE NEEDLE, TRIGGER POINTS WERE INJECTED AT THE LEFT NECK AREA, LEFT SHOULDER AREA, AND LEFT LOWER BACK AREA WITH A TOTAL OF 40 ML OF BUPIVACAINE 0.25% AND KENALOG 40 MG. THERE WAS NO EVIDENCE OF BLOOD, PARESTHESIA OR CEREBROSPINAL FLUID DURING THE PROCEDURE. THE PATIENT WAS SENT TO THE RECOVERY ROOM. THE PATIENT WAS MOVING THE EXTREMITIES AND DOING WELL. THERE WAS NO COMPLICATION DURING THE PROCEDURE POST PROCEDURE NOTE THE PATIENT WILL BE SEEN IN A FOLLOW UP IN THE NEXT FEW WEEKS. INSTRUCTIONS WERE GIVEN, QUESTIONS WERE ANSWERED, AND THE PATIENT EXPRESSED UNDERSTANDING AND AGREES WITH THE PLAN. I, BUCK HOWARD, DOCUMENTED THE ABOVE INFORMATION ACTING A SCRIBE FOR DR. GARCIA. I, DR. GARCIA, HAVE REVIEWED THE ABOVE DOCUMENT, SCRIBED BY [employer] HOWARD, AND I VERIFY THAT IT IS ACCURATE PREVENTIVE MEDICINE PT INFORMED BY MD TO WAIT ANOTHER WEEK TO START ENBRAL. PROCEDURE CODES 67579 INJECT TRIGGER POINTS 3/> DISPOSITION & COMMUNICATION FOLLOW UP 3 WEEKS ELECTRONICALLY SIGNED BY KENDELL GARCIA MD ON 05/15/2017 AT 08:23 PM EDT DISCLAIMER : THIS IS A VISIT SUMMARY EXTRACTED FROM THE [employer] CHART. IT IS NOT A COPY OF THE [employer] PROGRESS NOTE. ALIN
== END ==
LOC: M PAIN 14:40
PROVIDERS: ATTEND Anesthesiology
DX: G89.29 Other chronic pain (principal); M54.2 Cervicalgia; M25.512 Pain in left shoulder; M54.5 Low back pain; M79.1 Myalgia; R21 Rash and other nonspecific skin eruption; G43.709 Chronic migraine without aura, not intractable, without status migrainosus; L23.1 Allergic contact dermatitis due to adhesives; Z88.8 Allergy status to other drugs, medicaments and biological substances; Z79.899 Other long term (current) drug therapy

== ENCOUNTER → 2017-05-23 | Outpatient (CLI) | payer OTHER ==
[~2017-05-23] MED LIST changes: -BUPIVACAINE HCL 0.25% 10 ML VIAL As Ordered ONE; -BUPIVACAINE HCL 0.25% 30 ML VIAL As Ordered ONE; -TRIAMCINOLONE ACETONIDE SUSP 40 MG/ML VIAL (J3301) As Ordered ONE
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
== END ==
LOC: M PAIN 09:40
PROVIDERS: ATTEND Nurse Practitioner Family
DX: G43.709 Chronic migraine without aura, not intractable, without status migrainosus (principal); M79.1 Myalgia; M19.90 Unspecified osteoarthritis, unspecified site; L21.9 Seborrheic dermatitis, unspecified; E03.9 Hypothyroidism, unspecified; Z88.8 Allergy status to other drugs, medicaments and biological substances; L23.1 Allergic contact dermatitis due to adhesives; Z79.899 Other long term (current) drug therapy

== ENCOUNTER → 2017-10-31 | Outpatient (CLI) | payer OTHER ==
[~2017-10-31] MED LIST changes: +BOTULINUM INJ 100 UNITS (J0585) IM; -CETI10CH PO; -CYCL10TA3 PO; -CYMB60CA3 PO; -DEPA250T32 PO; -DILA2TAB PO; -GABA300C2 PO; -GABAPOW41 PO; -IMIT100T PO; -LANS30CA PO; -LEVO75TA3 PO; -LEVO88TA3 PO; -LIDO5OI EXT; -LYRI150C PO; -LYRI75CA PO; -MULTCAP PO; -NARA2.5T PO; -NORT50CA PO; -NUCY50TA PO; -PANT20TA PO; -PREG100CA PO; -PROP1TAB29 PO; -RELP20TA PO; -SIMV10TA2 PO; -TRAZ50TA11 PO; -VITA200015 PO; -VITA500T3 PO; -VITAD1000T PO; -[UNRECOGNIZED DRUG - CODE] OU; -[UNRECOGNIZED DRUG - CODE] PO; -[UNRECOGNIZED DRUG - OTHER] OU; +diazePAM 5 MG TAB As Ordered; +oxyCODONE 5MG TAB As Ordered
== END ==
LOC: M PAIN 12:30
DX: G43.709 Chronic migraine without aura, not intractable, without status migrainosus (principal); M19.90 Unspecified osteoarthritis, unspecified site; K21.9 Gastro-esophageal reflux disease without esophagitis; E03.9 Hypothyroidism, unspecified; Z88.8 Allergy status to other drugs, medicaments and biological substances; Z91.048 Other nonmedicinal substance allergy status; Z79.899 Other long term (current) drug therapy
CPT/HCPCS: J0585

== ENCOUNTER → 2017-11-15 | Outpatient (CLI) | payer OTHER | LOC: M PAIN 09:15 | DX: G43.709 Chronic migraine without aura, not intractable, without status migrainosus (principal); M19.90 Unspecified osteoarthritis, unspecified site; E03.9 Hypothyroidism, unspecified; Z88.8 Allergy status to other drugs, medicaments and biological substances; Z79.899 Other long term (current) drug therapy; Z91.048 Other nonmedicinal substance allergy status | CPT/HCPCS: G0463 ==

== ENCOUNTER → 2017-12-11 | Outpatient (CLI) | payer OTHER ==
[~2017-12-11] MED LIST changes: -BOTULINUM INJ 100 UNITS (J0585) IM; +BUPIVACAINE HCL 0.25% 10 ML VIAL As Ordered; +BUPIVACAINE HCL 0.25% 30 ML VIAL As Ordered; +TRIAMCINOLONE ACETONIDE SUSP 40 MG/ML VIAL (J3301) As Ordered; -diazePAM 5 MG TAB As Ordered; -oxyCODONE 5MG TAB As Ordered
== END ==
LOC: M PAIN 10:00
DX: G89.29 Other chronic pain (principal); M25.511 Pain in right shoulder; M25.512 Pain in left shoulder; M54.6 Pain in thoracic spine; M79.1 Myalgia; L40.52 Psoriatic arthritis mutilans; K21.9 Gastro-esophageal reflux disease without esophagitis; E03.9 Hypothyroidism, unspecified; Z79.899 Other long term (current) drug therapy; Z88.8 Allergy status to other drugs, medicaments and biological substances; Z91.048 Other nonmedicinal substance allergy status; Z91.09 Other allergy status, other than to drugs and biological substances
CPT/HCPCS: J3301

== ENCOUNTER → 2018-01-01 | Outpatient (CLI) | payer OTHER | LOC: M PAIN 08:30 | DX: M79.1 Myalgia (principal); G43.709 Chronic migraine without aura, not intractable, without status migrainosus; E03.9 Hypothyroidism, unspecified; K21.9 Gastro-esophageal reflux disease without esophagitis; Z79.899 Other long term (current) drug therapy; Z88.8 Allergy status to other drugs, medicaments and biological substances; Z91.048 Other nonmedicinal substance allergy status | CPT/HCPCS: G0463 ==

== ENCOUNTER → 2018-02-01 | Outpatient (CLI) | payer OTHER ==
[~2018-02-01] MED LIST changes: +BOTULINUM INJ 100 UNITS (J0585) IM; -BUPIVACAINE HCL 0.25% 10 ML VIAL As Ordered; -BUPIVACAINE HCL 0.25% 30 ML VIAL As Ordered; -TRIAMCINOLONE ACETONIDE SUSP 40 MG/ML VIAL (J3301) As Ordered
== END ==
LOC: M PAIN 11:30
DX: G43.709 Chronic migraine without aura, not intractable, without status migrainosus (principal); L40.52 Psoriatic arthritis mutilans; K21.9 Gastro-esophageal reflux disease without esophagitis; E03.9 Hypothyroidism, unspecified; M79.7 Fibromyalgia; Z79.899 Other long term (current) drug therapy; Z88.8 Allergy status to other drugs, medicaments and biological substances; Z91.09 Other allergy status, other than to drugs and biological substances
CPT/HCPCS: J0585

== ENCOUNTER → 2018-02-21 | Outpatient (CLI) | payer OTHER | LOC: M PAIN 08:30 | DX: G43.709 Chronic migraine without aura, not intractable, without status migrainosus (principal); M54.2 Cervicalgia; M79.1 Myalgia; L40.52 Psoriatic arthritis mutilans; K21.9 Gastro-esophageal reflux disease without esophagitis; E03.9 Hypothyroidism, unspecified; Z79.899 Other long term (current) drug therapy; Z88.8 Allergy status to other drugs, medicaments and biological substances; Z91.09 Other allergy status, other than to drugs and biological substances | CPT/HCPCS: G0463 ==

== ENCOUNTER → 2018-05-23 | Outpatient (CLI) | payer OTHER | LOC: M PAIN 11:30 | DX: G43.709 Chronic migraine without aura, not intractable, without status migrainosus (principal); M79.1 Myalgia; M54.2 Cervicalgia; M19.90 Unspecified osteoarthritis, unspecified site; K21.9 Gastro-esophageal reflux disease without esophagitis; E03.9 Hypothyroidism, unspecified; L40.9 Psoriasis, unspecified; Z79.899 Other long term (current) drug therapy; Z88.8 Allergy status to other drugs, medicaments and biological substances; Z91.09 Other allergy status, other than to drugs and biological substances; Z86.79 Personal history of other diseases of the circulatory system; Z98.84 Bariatric surgery status | CPT/HCPCS: G0463 ==

== ENCOUNTER → 2018-05-30 | Outpatient (CLI) | payer OTHER ==
[~2018-05-30] MED LIST changes: +oxyCODONE 5MG TAB As Ordered
== END ==
LOC: M PAIN 13:45
DX: G43.709 Chronic migraine without aura, not intractable, without status migrainosus (principal); E03.9 Hypothyroidism, unspecified; M79.7 Fibromyalgia; Z79.899 Other long term (current) drug therapy; Z88.8 Allergy status to other drugs, medicaments and biological substances; Z91.048 Other nonmedicinal substance allergy status
CPT/HCPCS: J0585

== ENCOUNTER → 2018-07-25 | Outpatient (CLI) | payer OTHER | LOC: M PAIN 14:30 | DX: G43.709 Chronic migraine without aura, not intractable, without status migrainosus (principal); M79.10 Myalgia, unspecified site; K21.9 Gastro-esophageal reflux disease without esophagitis; E03.9 Hypothyroidism, unspecified; M79.7 Fibromyalgia; L40.9 Psoriasis, unspecified; Z79.899 Other long term (current) drug therapy; Z88.8 Allergy status to other drugs, medicaments and biological substances; Z91.09 Other allergy status, other than to drugs and biological substances; Z98.84 Bariatric surgery status | CPT/HCPCS: G0463 ==

== ENCOUNTER → 2018-08-29 | Outpatient (CLI) | payer OTHER | LOC: M PAIN 11:30 | DX: G43.709 Chronic migraine without aura, not intractable, without status migrainosus (principal); L40.50 Arthropathic psoriasis, unspecified; K21.9 Gastro-esophageal reflux disease without esophagitis; E03.9 Hypothyroidism, unspecified; M79.7 Fibromyalgia; Z79.899 Other long term (current) drug therapy; Z98.84 Bariatric surgery status; Z88.8 Allergy status to other drugs, medicaments and biological substances; Z91.048 Other nonmedicinal substance allergy status | CPT/HCPCS: J0585 ==

== ENCOUNTER → 2018-10-04 | Outpatient (CLI) | payer OTHER ==
[~2018-10-04] MED LIST changes: -BOTULINUM INJ 100 UNITS (J0585) IM; +CETI10CH PO; +CYCL10TA3 PO; +CYMB60CA3 PO; +DEPA250T32 PO; +DILA2TAB PO; +GABA300C2 PO; +GABAPOW41 PO; +IMIT100T PO; +LANS30CA PO; +LEVO75TA3 PO; +LEVO88TA3 PO; +LIDO5OI EXT; +LYRI150C PO; +LYRI75CA PO; +MULTCAP PO; +NARA2.5T PO; +NORT50CA PO; +NUCY50TA PO; +PANT20TA2 PO; +PREG100CA PO; +PROP20TA72 PO; +RELP20TA PO; +SIMV10TA2 PO; +TRAZ-160 PO; +VITA200015 PO; +VITA500T3 PO; +VITAD1000T PO; +[UNRECOGNIZED DRUG - CODE] OU; +[UNRECOGNIZED DRUG - CODE] PO; +[UNRECOGNIZED DRUG - OTHER] OU; -oxyCODONE 5MG TAB As Ordered
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
== END ==
LOC: M PAIN 08:45
PROVIDERS: ATTEND Nurse Practitioner Family
DX: G43.709 Chronic migraine without aura, not intractable, without status migrainosus (principal); L40.52 Psoriatic arthritis mutilans; E03.9 Hypothyroidism, unspecified; M79.7 Fibromyalgia; G43.909 Migraine, unspecified, not intractable, without status migrainosus; K21.9 Gastro-esophageal reflux disease without esophagitis; Z79.899 Other long term (current) drug therapy; Z88.8 Allergy status to other drugs, medicaments and biological substances; Z91.09 Other allergy status, other than to drugs and biological substances; Z86.79 Personal history of other diseases of the circulatory system; Z98.84 Bariatric surgery status